=== PATIENT | male | born 1980 | race Hispanic/Latino ===

== ENCOUNTER 2019-03-03 10:03 | Emergency (ER) | payer SELFPAY ==
--- NOTE | 2019-03-03 11:49 | RAD ---
RIGHT FOOT 3 VIEWS: Date: 03/03/2019 HISTORY: Right great toe and foot pain. Trauma. FINDINGS/IMPRESSION: There is a nondisplaced fracture involving the proximal phalanx of the right great toe. POS: [facility]
== END 2019-03-03 12:55 | disposition home or self-care (01) ==
LOC: ERS 10:03
DX: S92.414A Nondisplaced fracture of proximal phalanx of right great toe, initial encounter for closed fracture (principal); F17.210 Nicotine dependence, cigarettes, uncomplicated; W21.00XA Struck by hit or thrown ball, unspecified type, initial encounter